=== PATIENT | male | born 1975 | race Caucasian/White ===

== ENCOUNTER 2016-10-17 16:42 | Emergency (ER) | payer OTHER, MEDICAID ==
--- NOTE | 2016-10-17 17:20 | EDPHY ---
H & P Time Seen by Provider: 10/17/16 16:44 HPI/ROS: CHIEF COMPLAINT: Left-sided rib pain HISTORY OF PRESENT ILLNESS: 41-year-old male presents to the emergency department by ambulance complaining of left-sided rib pain that began approximately 3 days ago. The patient notes a few days ago he was doing some yd work, specifically a lot of cutting branches from bushes injuries and felt very tight in the left anterior aspect of his chest that evening and then when he woke up the following morning felt more severe pain in the left side of his chest. He is concerned that something is "moving". He denies feeling short of breath however he does have pain when he takes a big deep breath and has pain with movement of his left arm. Denies abdominal pain. Denies radiation of pain. He does not feel nauseous. No vomiting. No fevers or chills. He saw his primary care provider today and had a chest x-ray done and his primary care provider sent him to the emergency department for further evaluation given his level of pain. He was given IV fentanyl by EMS which significantly improved his pain. REVIEW OF SYSTEMS: Constitutional: No fever, no chills. Eyes: No double or blurry vision. ENT: No sore throat. Respiratory: No cough, no shortness of breath. Cardiac: No chest pain. Gastrointestinal: No abdominal pain, vomiting or diarrhea. Genitourinary: No dysuria. Musculoskeletal: No neck or back pain. Skin: No rashes. Neurological: No headache. Past Medical/Surgical History: Hypogonadism, ulcerative colitis Social History: , [id number] dad Smoking Status: Never smoked Physical Exam: General Appearance: Alert, no distress. 94% on room air. Eyes: Pupils equal and round. Extraocular motions are all intact. ENT: Mouth: Mucous membranes moist. Respiratory: No wheezing, rhonchi, or rales, lungs are clear to auscultation. Reproducible pain with palpation to the left anterior aspect of the chest in the midclavicular line overlying the 2nd and 3rd rib area. No palpable crepitus or other bony abnormality. No swelling or ecchymosis noted. Cardiovascular: Regular rate and rhythm. Gastrointestinal: Abdomen is soft and nontender, no masses, no rebound or guarding, bowel sounds normal. Neurological: Alert and oriented x 3, cranial nerves II through XII grossly intact Skin: Warm and dry, no rashes. Musculoskeletal: Nontender to palpate along the cervical, thoracic or lumbar spine. Neck is supple. Extremities: Full range of motion and no peripheral edema. Patient also has pain with movement of the left upper extremity causing pain in the left anterior aspect of his chest. Psychiatric: Patient is oriented X 3, there is no agitation. Constitutional: Initial Vital Signs Temperature (C) 37.7 C 10/17/16 16:58 Heart Rate 86 10/17/16 16:58 Respiratory Rate 18 10/17/16 16:58 Blood Pressure 129/87 H 10/17/16 16:58 O2 Sat (%) 94 10/17/16 16:58 O2 Delivery Mode Room Air Allergies/Adverse Reactions: Penicillins Allergy (Verified 10/17/16 16:57) Home Medications: Medication Instructions Recorded Dexelent 10/17/16 KLONOPIN 10/17/16 TESTOSTERONE 10/17/16 Unknown Antidepressant 10/17/16 oxyCODONE/APAP 5/325 [Percocet 1 - 2 tab PO Q4-6PRN PRN #15 tab 10/17/16 5/325] Medical Decision Making - Diagnostics Imaging Results: Imaging Impressions Chest/Thorax CTA 10/17/16 17:46 Impression: 1. No evidence of pulmonary embolic disease. 2. Asymmetric left basilar opacity with associated small pleural effusion; pneumonia versus atelectasis with clinical correlation recommended. 3. See above report for additional findings. Results called and discussed with Amrita Latham PA-C on 10/17/2016 at 1836 hours. ED Course/Re-evaluation: 41-year-old male presents to the emergency department with left anterior chest pain. Hit the pain is reproducible with palpation. It is also reproducible with movement of his left upper extremity. Clinically I think he has musculoskeletal pain. I did discuss with the patient the possibility of this being related to costochondritis. I encouraged anti-inflammatories. An i-STAT was drawn the patient had a creatinine of 1.5. No other creatinines to compare this to. The patient had an outpatient chest x-ray which was reportedly normal that is currently being uploaded into our system. Dr. Holman called and spoke with Dr. Barone in the emergency department. Dr. Holman is very concerned that even with a normal chest x-ray, something else was going on recommended obtaining CT pulmonary angiogram. This was discussed with the patient. The patient did have elevated creatinine of 1.5. He received IV normal saline. He was also given IV Valium. Chest x-ray was reviewed by myself and the PAC system and revealed no evidence of pneumothorax or other abnormality. CT pulmonary angiogram reveals no evidence of pulmonary embolism. The patient has mild left upper load opacity could be digital sales representative of pleuritis. I do not think this patient clinically has pneumonia. He has no reported cough or fever. The patient has reproducible pain with palpation. The patient was given 0.5 mg of IV Dilaudid for pain. He will follow up with his primary care provider this week to have his laboratory studies recheck. He was encouraged to return to the emergency department is very developed worsening pain, shortness of breath, or if he felt worse in any way. Differential Diagnosis: Including but not limited to musculoskeletal pain, muscle spasm, pneumothorax, pneumonia, pulmonary embolism. - Data Points Laboratory Results: 10/17/16 16:52 POC Hgb 19.7 gm/dL H gm/dL (13.7-17.5) POC Hct 58 % H % (40-51) POC Sodium 145 mEq/L H mEq/L (134-144) POC Potassium 4.2 mEq/L mEq/L (3.3-5.0) POC Chloride 103 mEq/L mEq/L (97-110) POC BUN 13 mg/dL mg/dL (7-23) POC Creatinine 1.5 mg/dL H mg/dL (0.7-1.3) POC Glucose 81 mg/dL mg/dL (70-100) Medications Given: Discontinued Medications Diazepam (Valium Injection) 5 mg IVP EDNOW ONE Stop: 10/17/16 17:30 Last Admin: 10/17/16 17:39 Dose: 5 mg Hydromorphone HCl (Dilaudid) 0.5 mg IVP EDNOW ONE Stop: 10/17/16 18:17 Last Admin: 10/17/16 18:39 Dose: 0.5 mg Sodium Chloride (Ns) 1,000 mls @ 0 mls/hr IV ONCE ONE PRN Reason: Wide Open Stop: 10/17/16 17:25 Last Admin: 10/17/16 17:31 Dose: 1,000 mls Sodium Chloride (Ns) 1,000 mls @ 0 mls/hr IV ONCE ONE PRN Reason: Wide Open Stop: 10/17/16 17:57 Last Admin: 10/17/16 17:58 Dose: 1,000 mls Point of Care Test Results: 10/17/16 16:52 POC Sodium 145 H POC Potassium 4.2 POC Chloride 103 POC BUN 13 POC Creatinine 1.5 H POC Glucose 81 Departure - Departure Disposition: Home, Routine, Self-Care Clinical Impression: left anterior chest wall pain Condition: Good Instructions: Chest Wall Pain (ED) Additional Instructions: You should have close follow-up with her primary care provider to have your blood work repeated. Return to the emergency department if you feel short of breath, if you have any other change in symptoms or if you feel worse in any way. Percocet for severe pain as directed. Activity as tolerated. Deep breaths. Referrals: Sourav Holman MD [Medical Doctor] - 1-2 days without fail Prescriptions: oxyCODONE/APAP 5/325 [Percocet 5/325] 1 - 2 tab PO Q4-6PRN PRN #15 tab PRN Reason: For Moderate To Severe Pain
[2016-10-17] MEDS ORDERED: NS 1,000 ML IV ONE ×2 (17:24→17:56)
[2016-10-17] MEDS ORDERED: DIAZEPAM 10 MG/2 ML SYR IVP ONE (17:29)
[2016-10-17] MEDS ORDERED: IOPAMIDOL (ISOVUE 370) 100 ML BTL IV ONE (17:53)
[2016-10-17] MEDS ORDERED: HYDROmorphONE/DILAUDID 1 MG/ML SYR IVP ONE (18:16)
[2016-10-17 18:55] VITALS: RESP 16; O2SAT 98
[2016-10-17 20:08] VITALS: BP 125/76; PULSE 81; TEMP 97.5
== END 2016-10-17 20:08 | disposition home or self-care (01) ==
LOC: EDUNIT#
DX: S29.9XXA Unspecified injury of thorax, initial encounter (principal); X58.XXXA Exposure to other specified factors, initial encounter; Y92.007 Garden or yard of unspecified non-institutional (private) residence as the place of occurrence of the external cause; Y99.8 Other external cause status; Y93.89 Activity, other specified
CPT/HCPCS: 82947-QW; 96374; J1170; Q9967